=== PATIENT | male | born 1960 | race Caucasian/White ===

== ENCOUNTER 2017-10-14 22:49 | Emergency (ER) | payer BC, MEDICAID ==
[2017-10-15] MEDS: ASPIRIN 325 MG TAB PO ×2 (00:38→02:05)
[2017-10-15 01:32] LABS: ADD MAN DIFF? NO
[2017-10-15 01:37] LABS: BASOPHILS % 0.5 % (0.0-2.0); EOSINOPHILS # 0.2 10^3/ul (0.0-0.5); EOSINOPHILS % 2.5 % (0.0-7.0); HEMATOCRIT 43.1 % (42.0-52.0); HEMOGLOBIN 14.7 g/dl (14.0-18.0); LYMPHOCYTES # 1.7 10^3/ul (0.8-2.9); LYMPHOCYTES % 27.3 % (15.0-51.0); MEAN CORPUSCULAR HEMOGLOBIN 29.1 pg (29.0-33.0); MEAN CORPUSCULAR HGB CONC 34.1 g/dl (32.0-37.0); MEAN CORPUSCULAR VOLUME 85.3 fl (82.0-101.0); MEAN PLATELET VOLUME 11.9 fl (7.4-10.4); MONOCYTE # 0.4 10^3/ul (0.3-0.9); MONOCYTES % 7.2 % (0.0-11.0); NEUTROPHIL # 3.8 10^3/ul (1.6-7.5); NEUTROPHILS % 62.2 % (39.0-77.0); PLATELET COUNT 303 10^3/UL (140-415); RED BLOOD COUNT 5.05 10^6/ul (4.70-6.10); RED CELL DISTRIBUTION WIDTH 14.6 % (11.5-14.5)
[2017-10-15 01:37] LABS: WHITE BLOOD COUNT 6.1 10^3/ul (4.8-10.8)
[2017-10-15 02:01] LABS: ANION GAP 19 (8-16); BLOOD UREA NITROGEN 17 mg/dl (7-20); CALCIUM 9.4 mg/dl (8.4-10.2); CARBON DIOXIDE 24 mmol/L (21-31); CHLORIDE 107 mmol/L (97-110); CREATININE 0.99 mg/dl (0.61-1.24); GLUCOSE 119 mg/dl (70-220); POTASSIUM 3.8 mmol/L (3.5-5.1); SODIUM 146 mmol/L (135-144)
[2017-10-15 02:04] LABS: CREATINE KINASE 137 IU/L (23-200)
[2017-10-15] MEDS: NITROGLYCERIN (SL) 0.4 MG TAB SL (02:05)
[2017-10-15 02:10] LABS: B-TYPE NATRIURETIC PEPTIDE 527 PG/ML (0-125)
[2017-10-15 02:14] LABS: TROPONIN-I 0.012 ng/ml (0.00-0.12)
[2017-10-15 02:34] LABS: TROPONIN-I < 0.012 ng/ml (0.00-0.12)
[2017-10-15 02:58] LABS: CK INDEX 1.1; CK-MB 1.51 ng/ml (0.0-2.4)
[2017-10-15] MEDS: LIDOCAINE/MYLANTA 40 ML BTL PO (03:17)
[2017-10-15] MEDS: KETOROLAC 30 MG INJ IV (05:18)
== END 2017-10-15 05:35 | disposition home or self-care (01) ==
LOC: E/R 22:49
DX: R07.89 Other chest pain (principal); I25.10 Atherosclerotic heart disease of native coronary artery without angina pectoris; I10 Essential (primary) hypertension; Z87.891 Personal history of nicotine dependence; Z79.82 Long term (current) use of aspirin
CPT/HCPCS: 36415; 71045; 80048; 82550; 82553; 83880; 84484; 85025; 93005; 96374; 99285-25